=== PATIENT | female | born 1990 | race African-American/Black ===

== ENCOUNTER 2017-06-29 10:23 | Emergency (ER) | payer MEDICAID ==
[~2017-06-29] VITALS: Ht 175.3 cm; Wt 68.0 kg
[~2017-06-29 10:23] MED LIST: ALLEGRA
[2017-06-29 11:02] LABS: CLARITY URINE CLEAR (CLEAR); COLOR URINE YELLOW (YELLOW); KETONES URINE NEGATIVE (NEGATIVE); LEUKOCYTE ESTERASE URINE 1+ (NEGATIVE); NITRITE URINE NEGATIVE (NEGATIVE); OCCULT BLOOD URINE NEGATIVE (NEGATIVE); PH URINE 7.5 (4.5-8.0); PROTEIN URINE NEGATIVE (NEGATIVE); SPECIFIC GRAVITY URINE 1.021 (1.005-1.030); UROBILINOGEN URINE 0.2 E.U./dL (0.2-1.0)
[2017-06-29 12:10] VITALS: BP 139/94
== END 2017-06-29 12:25 | disposition home or self-care (01) ==
LOC: ER 11:33
DX: N39.0 Urinary tract infection, site not specified (principal); Z88.0 Allergy status to penicillin; Z88.8 Allergy status to other drugs, medicaments and biological substances
CPT/HCPCS: 81001; 81025; 99283

== ENCOUNTER 2017-07-07 13:04 | Emergency (ER) | payer MEDICAID, OTHER | END 2017-07-07 15:13 | disposition left against medical advice (07) | LOC: ER 13:30 | DX: Z76.0 Encounter for issue of repeat prescription (principal); Z53.21 Procedure and treatment not carried out due to patient leaving prior to being seen by health care provider ==

== ENCOUNTER 2017-09-18 09:58 | Emergency (ER) | payer SELFPAY ==
[~2017-09-18] VITALS: Ht 175.3 cm; Wt 74.6 kg
[2017-09-18 14:36] VITALS: BP 115/65
== END 2017-09-18 14:47 | disposition home or self-care (01) ==
LOC: ER 13:23
DX: J30.9 Allergic rhinitis, unspecified (principal); R09.82 Postnasal drip; Z88.0 Allergy status to penicillin
CPT/HCPCS: 99283

== ENCOUNTER 2018-01-16 09:55 | Emergency (ER) | payer SELFPAY ==
[~2018-01-16] VITALS: Ht 175.3 cm; Wt 73.0 kg
[2018-01-16 10:10] VITALS: BP 115/69
[2018-01-16 10:49] LABS: CLARITY URINE CLEAR (CLEAR); COLOR URINE YELLOW (YELLOW); KETONES URINE NEGATIVE (NEGATIVE); LEUKOCYTE ESTERASE URINE 3+ (NEGATIVE); NITRITE URINE NEGATIVE (NEGATIVE); OCCULT BLOOD URINE 1+ (NEGATIVE); PROTEIN URINE NEGATIVE (NEGATIVE); SPECIFIC GRAVITY URINE 1.018 (1.005-1.030); UROBILINOGEN URINE 0.2 E.U./dL (0.2-1.0)
== END 2018-01-16 12:07 | disposition home or self-care (01) ==
LOC: ER 09:55
DX: N39.0 Urinary tract infection, site not specified (principal); Z88.1 Allergy status to other antibiotic agents; Z88.0 Allergy status to penicillin
CPT/HCPCS: 81003; 81025; 87077; 87086; 87186; 99284